=== PATIENT | female | born 1995 | race Caucasian/White ===

== ENCOUNTER 2016-05-18 13:06 | Emergency (ER) | payer OTHER ==
[~2016-05-18 13:06] MED LIST: ACID CONTROL20 MG PO; BIRTH CONTROL PILL; IBUPROFEN800 MG PO; IRON325 ( 651 PO; PRENATAL MULTI1 EAC3; PRENATAL1 TA1 PO; ULTRAM PO; ZOFRAN ODT4 MG PO
[2016-05-18 13:13] LABS: INFLUENZA A NEG (NEG); INFLUENZA B NEG (NEG)
== END 2016-05-18 13:52 | disposition home or self-care (01) ==
LOC: SED 13:06
PROVIDERS: Nurse Practitioner
DX: J02.0 Streptococcal pharyngitis (principal); Z98.51 Tubal ligation status
CPT/HCPCS: 87804; 87880; 96372; 99283; J0561